=== PATIENT | male | born 1985 | race Caucasian/White ===

== ENCOUNTER 2020-08-18 10:39 | Emergency (ER) | payer OTHER ==
[~2020-08-18] VITALS: Ht 188 cm; Wt 81.6 kg
[2020-08-18] MEDS ORDERED: CLONAZEPAM1 MG (11:42)
[2020-08-18] MEDS ORDERED: COZAAR50 MG (11:42)
== END 2020-08-18 17:27 | disposition home or self-care (01) ==
LOC: ER 10:39
DX: R53.1 Weakness (principal); K62.5 Hemorrhage of anus and rectum; F06.4 Anxiety disorder due to known physiological condition

== ENCOUNTER 2020-09-03 07:25 | Day surgery (SDC) | payer OTHER ==
[~2020-09-03 07:25] MED LIST: CLONAZEPAM1 MG; COZAAR50 MG
[2020-09-03] MEDS ORDERED: NEURONTIN300 MG PO (10:27)
[2020-09-03] MEDS ORDERED: KETO10TA2 PO (10:27)
[2020-09-03] MEDS ORDERED: PERCOCET 5-3251 EACH PO (10:27)
[2020-09-03] MEDS ORDERED: DERMOPLAST PAIN78 GM TOP (10:28)
== END 2020-09-03 17:50 | disposition home or self-care (01) ==
LOC: CIR.AMB 07:25
PROVIDERS: ATTEND Surgery
DX: K64.4 Residual hemorrhoidal skin tags (principal); K64.8 Other hemorrhoids; Z20.822 Contact with and (suspected) exposure to COVID-19